=== PATIENT | female | born 1960 | race Caucasian/White ===

== ENCOUNTER 2023-02-22 09:59 | Emergency (ER) | payer OTHER, SELFPAY ==
[2023-02-22 10:14] VITALS: BP 149/89; PULSE 77; RESP 16; TEMP 36.5; O2SAT 99
--- NOTE | 2023-02-22 10:41 | ED.URI ---
HPI - URI/Sore Throat General Chief Complaint: Upper Respiratory Infection Stated Complaint: Congestion Time Seen by Provider: 02/22/23 10:15 Source: patient Mode of arrival: ambulatory Limitations: no limitations History of Present Illness HPI Narrative: Brenda is a 62-year-old female patient presenting to the clinic today with complaints of cough and congestion x4 days. She reports that she is bringing up some yellow phlegm. She denies any fever or chills. Does report she has had some hot sweats but that is mostly when coughing. Denies any history of asthma or COPD. MD elicited complaint: cough and other (Chest congestion) Related Data Home Medications Medication Instructions Recorded Confirmed amlodipine 5 mg tablet mg 02/22/23 atorvastatin 10 mg tablet mg 02/22/23 levothyroxine 137 mcg tablet mcg 02/22/23 metoprolol tartrate 50 mg tablet mg 02/22/23 venlafaxine 37.5 mg mg PO 02/22/23 capsule,extended release 24 hr venlafaxine 75 mg capsule,extended mg PO 02/22/23 release 24 hr Allergies Allergy/AdvReac Type Severity Reaction Status Date / Time Penicillins Allergy Unknown Verified 05/22/13 16:43 Review of Systems Review of Systems: Pertinent positives per HPI. Patient denies any fever, chills, rash, headache, visual changes, dizziness, cough, shortness of breath, chest pain, palpitations, nausea, vomiting, diarrhea, constipation, abdominal pain, or any urinary issues. PMFSH Comments At the time of my signature, I reviewed and agree with the nursing past medical, surgical, social, and family history. There is no relevant family history pertinent to the patient complaint. Exam Narrative: General: Well-developed, well nourished, in no apparent distress Head: Normocephalic, atraumatic Eyes: Pupils equally round and reactive to light bilaterally, EOM intact, sclera and conjunctive clear, no discharge, lids normal Ears: TMs intact and clear, ear canals clear, no drainage, grossly hearing normal. Nose: Nares patent, clear nasal discharge, no inflammation, no sinus tenderness. Mouth: Oral pharynx without lesions or masses, good dentition, MMM. Neck: Supple, trachea midline, no enlargement of anterior or posterior cervical nodes, no thyroid masses or goiter palpable. Cardio: Regular rate and rhythm, s1 and s2 normal, no murmur appreciated. Resp: Expiratory wheezing with mild rhonchi, no rales or rubs Course Course Emergency Course: Portions of this record may have been created with voice recognition software. Level of Care: Express Care Visit Vital Signs Vital signs: Vital Signs Temperature 36.5 C 02/22/23 10:14 Pulse Rate 77 02/22/23 10:14 Respiratory Rate 16 02/22/23 10:14 Blood Pressure 149/89 H 02/22/23 10:14 Pulse Oximetry 99 02/22/23 10:14 Oxygen Delivery Room Air 02/22/23 10:14 Temperature 36.5 C 02/22/23 10:14 Pulse Rate 77 02/22/23 10:14 Respiratory Rate 16 02/22/23 10:14 Blood Pressure 149/89 H 02/22/23 10:14 Pulse Oximetry 99 02/22/23 10:14 Oxygen Delivery Room Air 02/22/23 10:14 Vital signs reviewed MDM - URI/Sore Throat MDM Narrative Medical decision making narrative: At the time of visit patient is resting on the exam table. SpO2 is 99% on room air patient is able to speak in full sentences. COVID test was negative. I suspect patient has acute bronchitis. Prescription for prednisone and albuterol inhaler was sent to the pharmacy and supportive measures were discussed with the patient she voiced understanding the discharge instructions and agrees to treatment plan. Differential Diagnosis Differential diagnosis: Likely upper respiratory infection, otitis media, sinusitis, viral infection, bronchitis, influenza, pharyngitis and other (COVID) Lab Data Labs: Lab Results 02/22/23 Range/Units Unknown POC SARS CoV-2 Ag Negative (Negative) Discharge Plan Discharge Clinical Impression: Bronchit
== END 2023-02-22 10:46 | disposition home or self-care (01) ==
PROVIDERS: Emergency Provider Nurse Practitioner Family; PCP Nurse Practitioner
DX: J40 Bronchitis, not specified as acute or chronic (principal); Z20.822 Contact with and (suspected) exposure to COVID-19
CPT/HCPCS: 87426; 99213; C9803; G0463